=== PATIENT | female | born 1980 | race Caucasian/White ===

== ENCOUNTER 2021-04-11 08:21 | Outpatient (CLI) | payer OTHER ==
[2021-04-11] MEDS ORDERED: LIDOCAINE 1% Multi-Dose 20 ML VIAL. INJ ONE (08:30)
[2021-04-11 09:10] VITALS: BP 119/76
[2021-04-11 09:39] VITALS: BP 114/76
[2021-04-11 09:52] VITALS: BP 115/73
--- NOTE | 2021-04-11 09:59 | NUR ---
Patient's VS stable. Site clean, no bleeding. Patient has chronic migraines, does not have a headache that isn't "normal for her". States she feels "fine". Was able to ambulate to bathroom-- with permission from MD. Instructions provided on site care and symptoms worsening. Patient and verbalized understanding. Form signed by patient. Patient being driven home by . All belongings taken with. See VS.
[2021-04-11 10:02] VITALS: BP 115/79
--- NOTE | 2021-04-11 11:02 | RAD ---
DG FLUOROSCOPIC GUIDED LUMBAR PUNCTURE History: Reason: MIGRAINES, GAIT CHANGES, COGNITIVE CHANGES, 16/10 OPEN/CLOSE, 15CSF, .5 FT / Spl. In structions: / History: Procedure: The relative benefits, risks and alternatives to the procedure were discussed and verbal and written informed consent was obtained. The patient was placed prone and slightly oblique on the fluoroscopic table. The patient was careful ly prepped and draped in a sterile fashion and with local anesthetic and sterile technique, a 20-gaug whitley needle was advanced at the L4 level. Opening pressure approximately 16 cm of water. Clear CSF was seen and approximately 15 mL of clear fluid were removed and sent for testing. Closing pressure approximately 10 cm of water. Needle was removed with stylet in place. Hemostasis achieved. The procedure was well tolerated and the patient was sent to Recovery in good condition. Total fluoroscopy time for the procedure was 0.5 minutes seconds. 1 fluoroscopic spot images. IMPRESSION: 1. Successful fluoroscopic guided lumbar puncture. Electronically signed by: Cosmo Good DO (04/11/2021 11:00 AM) [id number]
== END 2021-04-11 10:00 | disposition home or self-care (01) ==
LOC: RAD 08:21
PROVIDERS: ATTEND Nurse Practitioner Family
DX: G43.909 Migraine, unspecified, not intractable, without status migrainosus (principal); Z88.0 Allergy status to penicillin
CPT/HCPCS: 62270; 62328

== ENCOUNTER → 2021-04-11 | Outpatient (CLI) | payer OTHER ==
[2021-04-11 10:51] LABS: CSF PROTEIN 27.5 mg/dL (15.0-45.0)
[2021-04-11 10:57] LABS: CSF CLARITY CLEAR; CSF COLOR COLORLESS; CSF WBC COUNT 2 /cmm (Not Established)
[2021-04-11 10:58] LABS: CSF RBC COUNT 11 /cmm (Not Established)
== END ==
LOC: SPEC 09:23
PROVIDERS: ATTEND Nurse Practitioner Family
DX: R53.1 Weakness (principal); G43.009 Migraine without aura, not intractable, without status migrainosus; R41.89 Other symptoms and signs involving cognitive functions and awareness; R26.2 Difficulty in walking, not elsewhere classified
CPT/HCPCS: 82945; 84157; 87071; 87075; 87102; 87252; 89051